=== PATIENT | male | born 1985 | race African-American/Black ===

== ENCOUNTER 2024-07-06 19:18 | Emergency (ER) | payer MEDICAID, OTHER ==
[~2024-07-06] VITALS: Ht 180.3 cm; Wt 109.0 kg
[2024-07-06 19:25] VITALS: O2SAT 98
[2024-07-06] MEDS: SODIUM CHLORIDE 0.9% 1,000 ML IV ONE (20:55)
[2024-07-06] MEDS: ONDANSETRON HCL 4MG/2ML INJ IV ONE (20:55)
[2024-07-06 21:02] LABS: BASOPHILS % 0.4 % (0.0-2.0); EOSINOPHILS % 0.9 % (0.0-5.0); HEMATOCRIT. 47.4 % (42.0-52.0); HEMOGLOBIN. 15.7 g/dL (14.0-18.0); LYMPHOCYTES % 17.7 % (20.0-50.0); MEAN CORPUSCULAR HEMOGLOBIN 27.6 pg (28.0-32.0); MEAN CORPUSCULAR HGB CONC 33.1 g/dL (31.0-37.0); MEAN CORPUSCULAR VOLUME 83.3 fL (80.0-94.0); MEAN PLATELET VOLUME 10.8 fl (7.4-10.4); MONOCYTES % 6.5 % (2.0-8.0); NEUTROPHILS % 74.5 % (40.0-76.0); PLATELET 268 x1000/uL (130-400); RED BLOOD CELL COUNT 5.69 mill/uL (4.7-6.1); RED CELL DISTRIBUTION WIDTH 12.9 % (11.6-14.6); WHITE BLOOD COUNT 11.4 x1000/uL (4.5-11.0)
[2024-07-06 21:04] LABS: DIFFERENTIAL COMMENT 1
[2024-07-06] MEDS: IBUPROFEN 600MG TABLET PO ONE (21:06)
[2024-07-06 21:09] LABS: CHLORIDE 97 mEq/L (98-107); POTASSIUM 4.3 mEq/L (3.5-5.1); SODIUM 134 mEq/L (136-145)
[2024-07-06 21:10] LABS: CALCIUM 10.2 mg/dL (8.7-10.4); CARBON DIOXIDE 27 mEq/L (21-32)
[2024-07-06] MEDS: MECLIZINE 25MG TABLET PO ONE (21:10)
[2024-07-06 21:15] LABS: CREATININE 1.3 mg/dL (0.6-1.3); UREA NITROGEN BLOOD 15 mg/dL (9-23)
[2024-07-06 21:23] LABS: GLUCOSE 354 mg/dL (70-105)
[2024-07-06 21:45] VITALS: BP 140/82; PULSE 91; RESP 16; TEMP 36.8
[2024-07-06] MEDS ORDERED: METF-414 MT (21:59)
[2024-07-06] MEDS ORDERED: CLAR10 MT (21:59)
[2024-07-06] MEDS ORDERED: FLUT9.9S BOTHNSTRLS (21:59)
== END 2024-07-06 22:46 | disposition home or self-care (01) ==
LOC: ER 19:18
DX: E11.65 Type 2 diabetes mellitus with hyperglycemia (principal); R42 Dizziness and giddiness; Z79.84 Long term (current) use of oral hypoglycemic drugs; Z79.899 Other long term (current) drug therapy
CPT/HCPCS: 80048; 85025; 36415; 96361; 96374; 99283; J8597; J2405; J7030; Z7610